=== PATIENT | female | born 2005 | race African-American/Black ===

== ENCOUNTER 2024-08-22 09:39 | Emergency (ER) | payer SELFPAY ==
[~2024-08-22] VITALS: Ht 175.3 cm; Wt 54.4 kg
[2024-08-22 09:51] VITALS: O2SAT 100
[2024-08-22] MEDS: BACITRACIN ZINC OINT UDPKT TOP ONE (10:50)
[2024-08-22] MEDS: IBUPROFEN 400MG TABLET PO ONE (10:50)
[2024-08-22 11:08] VITALS: BP 121/77; PULSE 71; RESP 18; TEMP 37.1; O2SAT 100
== END 2024-08-22 11:13 | disposition home or self-care (01) ==
LOC: ER 10:03
DX: S01.21XA Laceration without foreign body of nose, initial encounter (principal); Y08.89XA Assault by other specified means, initial encounter; Y93.89 Activity, other specified; Y92.89 Other specified places as the place of occurrence of the external cause; Y99.8 Other external cause status
CPT/HCPCS: 81025; 99283